=== PATIENT | female | born 1975 | race Caucasian/White ===

== ENCOUNTER 2016-12-15 13:46 | Emergency (ER) | payer OTHER ==
--- NOTE | 2016-12-15 16:44 | ED NURSING NOTES ---
Clinical Report - Nurses [place] [address] [place] [address] 12/15/2016 13:50 Patient: MONIKA PEÑA TRIAGE Triage time 1354 PM. Acuity: LEVEL 4. Chief Complaint: HEADACHE, MIGRAINE HEADACHE and FACIAL PAIN. Alert. No acute distress. SEPSIS SCREEN: Sepsis Screen. Negative (no infection suspected/documented). JAYASHREE COMA SCORE: Murdock Coma Scale: 15- eyes open spontaneously (4); best verbal response- oriented x 4 (5); best motor response- obeys commands (6). --14:06 Juana Martinez R.N. 13:52 12/15/16. BP: 142/67 (large adult cuff) taken on the right arm, via an automated monitor, while lying. HR: 76. RR: 16. O2 saturation: 99% on room air. Temp: 97.9 F (oral). Pain level now: 08/07. --14:06 Juana Martinez R.N. Weight: 157.8 kg stated. Height/Length: 64 inches Per Patient. BMI: 59.8. --13:52 Juana Martinez R.N. Medications Vasocidin. --14:10 Juana Martinez R.N. Tramadol HCL Oral 50 mg. --14:10 Juana Martinez R.N. TraZODone HCl Oral. --14:11 Juana Martinez R.N. Mirtazapine Oral. --14:11 Juana Martinez R.N. Cymbalta Oral. --14:11 Juana Martinez R.N. Hydrochlorothiazide Oral. --14:11 Juana Martinez R.N. glucosemine. --14:11 Juana Martinez R.N. Psyllium Oral. --14:12 Juana Martinez R.N. Cyanocobalamin Oral. --14:12 Juana Martinez R.N. Benadryl Allergy Oral. Benadryl Oral. --14:12 Juana Martinez R.N. Xanax Oral. --14:12 Juana Martinez R.N. Zofran Oral. --14:12 Juana Martienz R.N. Zocor Oral. --14:12 Juana Martinez R.NSamantha Meloxicam Oral. --14:13 Juana Martinez R.N. Colchicine Oral. --14:13 Juana Martinez R.NSamantha MetFORMIN HCl Oral. --14:13 Juana Martinez R.NSamantha Protonix Oral. --14:13 Juana Martinez R.N. HydrOXYzine HCl Oral. --14:13 Juana Martinez R.N. Norvasc Oral. --14:14 Juana Martinez R.N. Gabapentin Oral. --14:14 Juana Martinez R.N. Allopurinol Oral. --14:14 Juana Martinez R.N. Plavix Oral. --14:15 Juana Martinez R.NSamantha Lisinopril Oral. --14:15 Juana Martinez R.N. Mobic Oral. --14:16 Juana Martinez R.N. Requip Oral. --14:16 Juana Martinez R.N. Zonisamide Oral. --14:16 Juana Martinez R.N. Cyproheptadine HCl Oral. --14:16 Juana Martinez R.N. Solifenacin Succinate Oral. --14:17 Juana Martinez R.NSamantha Levothyroxine Sodium Oral. --14:17 Juana Martinez R.N. Allergies STEROIDS. --14:18 Juana Martinez R.N. Aspirin. Iodine. --14:18 Juana Martinez R.N. Unknown. --14:19 Juana Martinez R.N. The following entry was struck by Juana Martinez R.N., 14:19 (12/15/16) Reason - other. <<STRICKEN ENTRY-- Asp. --14:18 Juana Martinez R.N. --END STRIKE>>. Medication/allergy information source: the patient. --14:06 Juana Martinez R.N. History Arrived by private vehicle, and accompanied by family. Primary physician (Dr. Priti Castrejon in [place]). ( Pt states suffers from migraines for the past 2 years with numbness in left side from face to feet. Here from [place] visiting mom, when at a about 1/2 hr ago when a migraine initiated, usually takes benadryl to help it. Pt states when she goes to the ED they treat it with pain meds to help). This started today. This is a recurrent problem. (1/2 hour). She has had nausea and weakness. She has had constant, pain-related, localized numbness of the left face, arm, hand, leg and foot. She has had similar symptoms previously. No vomiting, fever or sinus pain. Treatment ORAL SURGERY ASSISTANT: (unknown antiaxiety meds). PAST MEDICAL HX: Diabetes mellitus. Hypertension. Headaches. Immunizations: up-to-date. The patient has had a hysterectomy. SOCIAL HX: Never smoker. No alcohol use or drug use. Recent travel by airplane in the last week- [facility] (1 week). ABUSE ASSESSMENT: No report of abuse. SELF HARM ASSESSMENT: A self harm assessment was performed. The patient answered "no" to the question "Do you have thoughts of harming or killing yourself?" and "Have you recently had thoughts about harming or killing others?". FALL RISK ASSESSMENT: Fall risk assessment completed. No fall risk identified. NUTRITIONAL RISK ASSESSMENT: The nutritional risk assessment revealed no deficiencies. FUNCTIONAL ASSESSMENT: Functional assessment: no impairments noted. LEARNING NEEDS ASSESSMENT: The learning needs assessment revealed no barriers. SKIN INTEGRITY ASSESSMENT: Skin integrity risk assessment completed. No skin integrity risk identified. --14:06 Juana Martinez R.N. PROBLEMS: UTI - Urinary Tract Infection. Spleen enlargement. Nephrolithiasis. Plantar Fasciitis. Arthritis. Diabetes Mellitus Type 2. Migraine Headache. --14:02 Juana Martinez R.N. Anxiety Reaction. --14:05 Juana Martinez R.N. ADDITIONAL SURGERIES: Appendectomy. Hysterectomy. --14:02 Martinez, Juana, R.N. Interventions ID band on patient. --14:06 Juana Martinez R.N. PHYSICAL ASSESSMENT To room via wheelchair. GENERAL / NEURO / PSYCH: Alert. Oriented X 4. Appears in no acute distress. Appears in pain. Speech within normal limits. She has had constant, pain-related, localized weakness. She has had numbness. Pupillary exam: Right pupil round and briskly reactive to light directly. Left pupil: round and briskly reactive to light directly. HEENT: Left-sided facial weakness. Photophobia present. Pupils equal, round and reactive to light. No sinus tenderness present. RESPIRATORY: Respirations not labored. Breath sounds within normal limits. GI / : The patient has had nausea. Abdomen soft and nontender. No abdominal tenderness or distention. No emesis noted. SKIN: Skin is warm and dry. --14:08 Juana Martinez R.N. ( Pt with recurrent left sided weakness when migranes initiate.). --14:20 Juana Martinez R.N. NURSING PROGRESS NOTES The initial plan of care for this patient has been created This plan of care was discussed with the patient. Reassurance given. Lights dimmed. Two patient identifiers checked. Call light placed in reach. Side rails up x 1. Bed placed in lowest position. Brakes of bed on. --14:18 Juana Martinez R.N. 15:11 12/15/2016 Lortab (Hydrocodone-APAP) PO 5/325 mg Tablets 1 tab given. Allergies verified and confirmed 5 rights. --15:11 Juana Martinez R.N. 15:22 12/15/2016 Site #1 started via IV in the left antecubital space with an 20g angiocath; one attempt. Blood drawn: rainbow set. Labeled in the presence of the patient and sent to the lab. Saline lock flushed. --15:22 Juana Martinez R.N. 15:22 12/15/2016 PHENERGAN (Promethazine HCl) IVP 25 mg given over 2 minute(s) via site #1. Allergies verified and confirmed 5 rights. IV patency established. IV site checked: no pain, redness, or swelling. IV flushed thoroughly pre- and post-medication administration. IVP given by RN. --15:22 Juana Martinez R.N. 15:12/15/2016 Benadryl (DiphenhydrAMINE HCl) IVP 25 mg given over 1 minute(s) via site #1. Allergies verified, confirmed 5 rights and sedative warning given to the patient. IV patency established. IV site checked: no pain, redness, or swelling. IV flushed thoroughly pre- and post-medication administration. IVP given by RN. --15:26 Juana Martinez R.N. 15:12/15/2016 Started bag #1 1000 mL IV Fluids IV NS (Saline); over 1 hour(s) via site #1 via dial-a-flow. Allergies verified and confirmed 5 rights. IV patency established. IV site checked: no pain, redness, or swelling. IV flushed thoroughly pre- and post-medication administration. --15:26 Juana Martinez R.N. Warming measures: blanket applied. Reassurance given. Lights dimmed. The patient is calm and resting quietly. Overall patient status- she states feels better. ( Pt states feeling in arm is "back and in my face as well" now just pain, vicodin/phenergan and benadryl given as ordered). GENERAL / NEURO / PSYCH: The patient reports headache. She reports numbness. Numbness is still present but improving. Two patient identifiers checked. Call light placed in reach. Side rails up x 1. Bed placed in lowest position. Brakes of bed on. --15:32 Juana Martinez R.N. 15:29 12/15/16. HR: 87. RR: 18. O2 saturation: 100% on room air. Pain level now: 07/08. --15:32 Juana Martinez R.N. ( Pt reports she's still nauseated after nausea medication). --15:48 [address] [place] 16:11 12/15/2016 Zofran (Ondansetron HCl) IVP 8 mg given over 4 minute(s) via site #1. Allergies verified and confirmed 5 rights. IV patency established. IV site checked: no pain, redness, or swelling. IV flushed thoroughly pre- and post-medication administration. IVP given by RN. --16:11 Juana Martinez R.N. 16:00 12/15/16. BP: 126/58. HR: 89. RR: 18. O2 saturation: 100% on room air. Temp: 97.7 F. Pain level now: 03/07. --16:19 Juana Martinez R.N. Reassurance given. Reassessment after medication administered. She is calm and has had no adverse reaction. Overall patient status is improved- she states feels better. GENERAL / NEURO / PSYCH: The patient reports headache is still present but improving and is currently mild in severity. GI / : The patient reports nausea is still present but improving. Two patient identifiers checked. Call light placed in reach. Side rails up x 1. Bed placed in lowest position. Brakes of bed on. --16:19 Juana Martinez R.N. 16:05 12/15/2016 Lortab PO Response: no adverse reaction pain is improving. Symptoms have improved the patient feels better. --16:20 Juana Martinez R.N. 16:20 12/15/2016 Benadryl IVP Response: no adverse reaction. --16:20 Juana Martinez R.N. 16:20 12/15/2016 PHENERGAN IVP Response: no adverse reaction. --16:20 Juana Martinez R.N. 16:49 12/15/2016 Zofran IVP Response: no adverse reaction symptoms have improved the patient feels better. --17:04 Juana Martinez R.N. 16:54 12/15/2016 Site #1 removed upon discharge. Catheter intact. Manual pressure applied. --17:04 Juana Martinez R.N. 16:54 12/15/2016 IV Fluids IV NS Discontinued: bag #1 infused upon discharge. Total amount infused: 1000 mL. IV patency established. IV site checked: no pain, redness, or swelling. IV flushed thoroughly. --17:04 Juana Martinez R.N. DISPOSITION / DISCHARGE Departure time: 1657 PM. Condition at departure: improved and stable. The goals identified in the patient's plan of care were met. No learning barriers present. Discharge instructions provided and reviewed with the patient and parent. Activity restrictions (rest) reviewed. Note given. Patient verbalized understanding. Written instructions provided in [place]. No medication instructions, treatment instructions or referrals given to the patient. The patient was discharged by the physician career services assistant. She was discharged home and accompanied by parent. She left the Emergency Department ambulatory and via private vehicle. Parent driving. FALL RISK ASSESSMENT: Fall risk assessment completed. No fall risk identified. --17:07 Juana Martinez R.N. 16:55 12/15/16. BP: 128/89 (regular adult cuff) taken on the left arm, via an automated monitor, while sitting. HR: 87. RR: 16 (regular and unlabored). O2 saturation: 98% on room air. Temp: 98 F (oral). Pain level now: 01/05. --17:07 Juana Martinez R.N. Locked/Released at 12/16/2016 1:47 by Juana Martinez R.N.
--- NOTE | 2016-12-15 16:44 | ED ORDER SUMMARY ---
..... Patient: MONIKA PEÑA OrderSheet [facility] VisitID: [id number] [address] [place] [address] 41y, F Registration Date/Time: 12/15/2016 ORDER SHEET Weight: 157.8 kg (stated) Allergies: STEROIDS, Aspirin, Iodine, Unknown GENERAL ORDERS: MEDICATION ORDERS: Phenergan IV 25 mg (NOW) (14:43 12/15/2016 JCoates) (15:22 EHassan R.N.) Lortab PO 5-325 mg (NOW) (14:44 12/15/2016 JCoates) (15:11 EHassan R.N.) IV FLUIDS: IV NS with Normal Saline 1 Liter: initial bolus 1000 mL (1000 mL/hr), then 1000 mL/hr for X1 (NOW) (14:41 12/15/2016 JCoates) (15:26 EHassan R.N.) Benadryl IV 25 mg (NOW) (14:42 12/15/2016 JCoates) (15:26 EHassan R.N.) IV Saline Lock (14:43 12/15/2016 JCoates) (15:22 EHassan R.N.) Zofran IV 8 mg (NOW) (16:04 12/15/2016 JCoates) (16:11 EHassan R.N.) ORDER SHEET NOTES: [Electronically signed by Renard Haley (23:35 12/15/2016)] [Electronically signed by Juana Martinez R.N. (01:47 12/16/2016)] [Electronically locked/signed by Juana Martinez R.N. (01:47 12/16/2016)]
--- NOTE | 2016-12-15 16:44 | ED ORDER SUMMARY ---
..... Patient: MONIKA PEÑA OrderSheet [facility] VisitID: [id number] [address] [place] [address] 41y, F Registration Date/Time: 12/15/2016 ORDER SHEET Weight: 157.8 kg (stated) Allergies: STEROIDS, Aspirin, Iodine, Unknown GENERAL ORDERS: MEDICATION ORDERS: Phenergan IV 25 mg (NOW) (14:43 12/15/2016 JCoates) (15:22 EHassan R.N.) Lortab PO 5-325 mg (NOW) (14:44 12/15/2016 JCoates) (15:11 EHassan R.N.) IV FLUIDS: IV NS with Normal Saline 1 Liter: initial bolus 1000 mL (1000 mL/hr), then 1000 mL/hr for X1 (NOW) (14:41 12/15/2016 JCoates) (15:26 EHassan R.N.) Benadryl IV 25 mg (NOW) (14:42 12/15/2016 JCoates) (15:26 EHassan R.N.) IV Saline Lock (14:43 12/15/2016 JCoates) (15:22 EHassan R.N.) Zofran IV 8 mg (NOW) (16:04 12/15/2016 JCoates) (16:11 EHassan R.N.) ORDER SHEET NOTES: [Electronically signed by Renard Haley (23:35 12/15/2016)] [Electronically signed by Juana Martinez R.N. (01:47 12/16/2016)] [Electronically locked/signed by Juana Martinez R.N. (01:47 12/16/2016)]
--- NOTE | 2016-12-15 16:44 | ED CLINICAL REPORT ---
Clinical Report - Physicians/Mid Levels [facility] [address] [place] [address] 12/15/2016 13:50 Patient: MONIKA PEÑA Time Seen: 14:33 Dec 15 2016. Arrived- By private vehicle. Historian- patient. HISTORY OF PRESENT ILLNESS Chief Complaint: MIGRAINE HEADACHE. Is still present but is improving. This started just prior to arrival about 1 hours ago. It was abrupt in onset and has been constant. Onset during emotional upset. It is described as similar to previous headaches, "pain", throbbing and sharp. Located in the right hemicranial region. No neck pain. Not located in the facial region. At its maximum, severity described as severe and 7 / 10. There were preceding symptoms. She has had blurred vision, photophobia, nausea, numbness, and vomiting. No weakness. Similar symptoms previously: Occasionally, as bad. Recent medical care: Not recently seen/assessed. REVIEW OF SYSTEMS No fever, sinus pressure, ear pain, sore throat or head injury. No chest pain, abdominal pain, diarrhea, pain with urination or skin rash. She has had a cough. All systems otherwise negative, except as recorded above. PAST HISTORY See nurses notes. History of chronic headaches. No history of heart disease. SOCIAL HISTORY Never smoker. No alcohol use or drug use. ADDITIONAL NOTES The nursing notes have been reviewed. PHYSICAL EXAM Appearance: No acute distress. Appears to be in pain. Does not appear to be lethargic. Eyes: Photophobia present. Pupils equal, round and reactive to light. No conjunctival findings or shallow angle. ENT: Ears normal. Nose normal. Pharynx normal. Neck: Normal inspection. Neck supple. No meningeal signs. CVS: Normal heart rate and rhythm. Heart sounds normal. Respiratory: No respiratory distress. Breath sounds normal. Abdomen: Soft and nontender. Obese. Back: Normal inspection. No CVA tenderness. Skin: Skin warm and dry. Normal skin color. No rash. Normal skin turgor. Neuro: Oriented X 3. Alert. Mood/affect normal. Speech normal. Cranial nerves normal (as tested). No cerebellar findings. No motor deficit. No sensory deficit. PROGRESS AND PROCEDURES Course of Care: 15:16 12/15/16. Patient Stable. Long-standing history of migraine headaches with consistent pattern. She lists ASA and steroids as allergies. Says Vicodin has helped in the past. I think it's reasonable to give her a single oral Vicodin but otherwise IV rehydration Benadryl and promethazine. 16:05 12/15/16. Patient says headache better but continues to have nausea. Will give IV Zofran. Patient better after Zofran. We'll discharge home. 01:47. Disposition: Condition: good. CLINICAL IMPRESSION Chronic recurrent migraine headache with aura. No status migrainosus. Not refractory to treatment. Cervical strain. INSTRUCTIONS Remain at bedrest today for one days. No dietary restrictions. Warnings: SEDATIVE MEDICATION: You were given sedative medication during your visit. Do not drive or operate dangerous machinery for 12 hours. GENERAL WARNINGS: Return or contact your physician immediately if your condition worsens or changes unexpectedly, if not improving as expected, or if other problems arise. SPECIFICALLY, return if you develop fever, vomiting or fainting. Follow-up: Follow up with your doctor in three days as needed. Understanding of the discharge instructions verbalized by patient. (Electronically signed by Renard Haley, 12/15/2016 23:35)
--- NOTE | 2016-12-16 01:47 | ED MAR SUMMARY ---
..... Medication Administration Record [facility] [address] [place] [place] [address] Patient: MONIKA PEÑA Visit ID: [id number] 41y, F Weight: 157.8 kg Height/Length: 64 in BMI: 59.8 ALLERGIES: Aspirin, Iodine, STEROIDS, Unknown Given 15:12/15/2016 Juana Martinez R.N. Medication Administered: LORTAB [PO] (HYDROCODONE-APAP), Dose: 1 tab 5/325 mg Tablets PO. Medication Ordered: Lortab PO 5-325 mg (NOW). Given 15:22 12/15/2016 Juana Martinez R.N. Medication Administered: PHENERGAN [IVP] (PROMETHAZINE HCL), Dose: 25 mg IVP over 2 minute(s), Site: #1 left AC. Medication Ordered: Phenergan IV 25 mg (NOW). Start 15:26 12/15/2016 Juana Martinez R.N., Stop 16:54 12/15/2016 Juana Martinez R.N. Medication Administered: IV NS (SALINE), Dose: IV Fluids over 1 hour(s), Dispensed: 1000 mL bag, Site: #1 left AC. Medication Ordered: IV NS with Normal Saline 1 Liter: initial bolus 1000 mL (1000 mL/hr), then 1000 mL/hr for X1 (NOW). Given 15:26 12/15/2016 Juana Martinez R.N. Medication Administered: BENADRYL [IVP] (DIPHENHYDRAMINE HCL), Dose: 25 mg IVP over 1 minute(s), Site: #1 left AC. Medication Ordered: Benadryl IV 25 mg (NOW). Given 16:11 12/15/2016 Juana Martinez R.N. Medication Administered: ZOFRAN [IVP] (ONDANSETRON HCL), Dose: 8 mg IVP over 4 minute(s), Site: #1 left AC. Medication Ordered: Zofran IV 8 mg (NOW).
--- NOTE | 2016-12-16 01:47 | ED MED RECONCILIATION SUMMARY ---
Patient: MONIKA PEÑA JO Medication Reconciliation Report [facility] VisitID: [id number] [address] [place] [address] 41y, F Registration Date/Time: 12/15/2016 Weight: 157.8 kg Height/Length: 64 in. BMI: 59.8 ALLERGIES: Aspirin, Iodine, STEROIDS, Unknown The patient's Home Medications are listed below: THE FOLLOWING MEDICATIONS NEED TO BE RECONCILED: Allopurinol Oral Benadryl Allergy Oral Benadryl Oral Colchicine Oral Cyanocobalamin Oral Cymbalta Oral Cyproheptadine HCl Oral Gabapentin Oral glucosemine Hydrochlorothiazide Oral HydrOXYzine HCl Oral Levothyroxine Sodium Oral Lisinopril Oral Meloxicam Oral MetFORMIN HCl Oral Mirtazapine Oral Mobic Oral Norvasc Oral Plavix Oral Protonix Oral Psyllium Oral Requip Oral Solifenacin Succinate Oral Tramadol HCL Oral 50 mg TraZODone HCl Oral Vasocidin Xanax Oral Zocor Oral Zofran Oral Zonisamide Oral The source(s) of the original Home Medication information: patient The following Medications were given to the patient in the Emergency Department: Lortab [PO] PO 1 tab, administered: 12/15/2016 3:11:00 PM PHENERGAN [IVP] IVP 25 mg, administered: 12/15/2016 3:22:00 PM Benadryl [IVP] IVP 25 mg, administered: 12/15/2016 3:26:00 PM IV NS IV Fluids bolus 0, administered: 12/15/2016 3:26:00 PM Zofran [IVP] IVP 8 mg, administered: 12/15/2016 4:11:00 PM The following Medications were prescribed to the patient: None.
--- NOTE | 2016-12-16 01:47 | ED MED RECONCILIATION SUMMARY ---
Patient: MONIKA PEÑA JO Medication Reconciliation Report [facility] VisitID: [id number] [address] [place] [address] 41y, F Registration Date/Time: 12/15/2016 Weight: 157.8 kg Height/Length: 64 in. BMI: 59.8 ALLERGIES: Aspirin, Iodine, STEROIDS, Unknown The patient's Home Medications are listed below: THE FOLLOWING MEDICATIONS NEED TO BE RECONCILED: Allopurinol Oral Benadryl Allergy Oral Benadryl Oral Colchicine Oral Cyanocobalamin Oral Cymbalta Oral Cyproheptadine HCl Oral Gabapentin Oral glucosemine Hydrochlorothiazide Oral HydrOXYzine HCl Oral Levothyroxine Sodium Oral Lisinopril Oral Meloxicam Oral MetFORMIN HCl Oral Mirtazapine Oral Mobic Oral Norvasc Oral Plavix Oral Protonix Oral Psyllium Oral Requip Oral Solifenacin Succinate Oral Tramadol HCL Oral 50 mg TraZODone HCl Oral Vasocidin Xanax Oral Zocor Oral Zofran Oral Zonisamide Oral The source(s) of the original Home Medication information: patient The following Medications were given to the patient in the Emergency Department: Lortab [PO] PO 1 tab, administered: 12/15/2016 3:11:00 PM PHENERGAN [IVP] IVP 25 mg, administered: 12/15/2016 3:22:00 PM Benadryl [IVP] IVP 25 mg, administered: 12/15/2016 3:26:00 PM IV NS IV Fluids bolus 0, administered: 12/15/2016 3:26:00 PM Zofran [IVP] IVP 8 mg, administered: 12/15/2016 4:11:00 PM The following Medications were prescribed to the patient: None.
--- NOTE | 2016-12-16 01:47 | ED MAR SUMMARY ---
..... Medication Administration Record [facility] [address] [place] [address] Patient: MONIKA PEÑA Visit ID: [id number] 41y, F Weight: 157.8 kg Height/Length: 64 in BMI: 59.8 ALLERGIES: Aspirin, Iodine, STEROIDS, Unknown Given 15:12/15/2016 Juana Martinez R.N. Medication Administered: LORTAB [PO] (HYDROCODONE-APAP), Dose: 1 tab 5/325 mg Tablets PO. Medication Ordered: Lortab PO 5-325 mg (NOW). Given 15:22 12/15/2016 Juana Martinez R.N. Medication Administered: PHENERGAN [IVP] (PROMETHAZINE HCL), Dose: 25 mg IVP over 2 minute(s), Site: #1 left AC. Medication Ordered: Phenergan IV 25 mg (NOW). Start 15:26 12/15/2016 Juana Martinez R.N., Stop 16:54 12/15/2016 Juana Martinez R.N. Medication Administered: IV NS (SALINE), Dose: IV Fluids over 1 hour(s), Dispensed: 1000 mL bag, Site: #1 left AC. Medication Ordered: IV NS with Normal Saline 1 Liter: initial bolus 1000 mL (1000 mL/hr), then 1000 mL/hr for X1 (NOW). Given 15:26 12/15/2016 Juana Martinez R.N. Medication Administered: BENADRYL [IVP] (DIPHENHYDRAMINE HCL), Dose: 25 mg IVP over 1 minute(s), Site: #1 left AC. Medication Ordered: Benadryl IV 25 mg (NOW). Given 16:11 12/15/2016 Juana Martinez R.N. Medication Administered: ZOFRAN [IVP] (ONDANSETRON HCL), Dose: 8 mg IVP over 4 minute(s), Site: #1 left AC. Medication Ordered: Zofran IV 8 mg (NOW).
--- NOTE | 2016-12-16 01:47 | ED DISCHARGE INSTRUCTIONS ---
Patient: MONIKA PEÑA General Instructions [facility] VisitID: [id number] [place] [address] 41y, F Registration Date/Time: 12/15/2016 Chronic recurrent migraine headache with aura. No status migrainosus. Not refractory to treatment. Cervical strain. INSTRUCTIONS Remain at bedrest today for one days. No dietary restrictions. Warnings: SEDATIVE MEDICATION: You were given sedative medication during your visit. Do not drive or operate dangerous machinery for 12 hours. GENERAL WARNINGS: Return or contact your physician immediately if your condition worsens or changes unexpectedly, if not improving as expected, or if other problems arise. SPECIFICALLY, return if you develop fever, vomiting or fainting. Follow-up: Follow up with your doctor in three days as needed. Understanding of the discharge instructions verbalized by patient. ADDITIONAL INFORMATION Migraine Headache Migraine headaches are related to changes in blood flow to the brain. This causes throbbing or constant pain on one or both sides of the head. The pain may last from a few hours to several days. There is usually nausea, vomiting, sensitivity to light and sound, and blurred vision. A migraine attack may be triggered by emotional stress, hormone changes during the menstrual cycle, oral contraceptives, alcohol use, certain foods containing tyramine, eye strain, weather changes, missing meals, or too little or too much sleep. Home Care For This Headache: 1) If you were given pain medicine for this headache, do not drive yourself home . Arrange for a ride, instead. When you get home, try to sleep. You should feel much better when you wake up. 2) Migraine headaches may improve with an ice pack on the forehead or at the base of the skull. Heat to the back of your neck may relieve any neck spasm. 3) Drink only clear liquids or eat a very light diet to avoid nausea/vomiting until symptoms improve. Preventing Future Headaches: 1) Pay attention to those factors that seem to trigger your headache. Try to avoid them when you can. If you have frequent headaches, it is useful to keep a diary of what you were doing, feeling or eating in the hours before each attack. Show this to your doctor to help find the cause of your headaches. a) If you feel that stress is a factor in your headaches, look at the sources of stress in your life. Find ways to release the build-up of those stresses by using regular exercise, relaxation methods (yoga, meditation), bio-feedback or simply taking time-out for yourself. For more information about this, consult your doctor or go to a local bookstore and review books and tapes on this subject. b) Tyramine is a substance present in the following foods : chocolate, yogurt, all cheeses except cottage cheese and cream cheese. smoked or pickled fish and meat (including marrero, caviar, bologna, pepperoni, salami), liver, avocados, bananas, figs, raisins, and red wine. Be aware that these foods may trigger a migraine in some persons. Try taking these foods out of your diet for 1-2 months to see if this reduces headache frequency. Treating Future Attacks: 1) At the first sign of a headache, take time out if possible. Find a quiet, dark, comfortable place to sit or lie down. Let yourself relax or sleep. 2) An ice pack on the forehead or area of greatest pain may help. If you are having muscle spasm and tightness of the neck, a heating pad and massage to this area may be helpful. 3) If you have been prescribed a medicine to stop a migraine headache, use this at the very first warning sign of the headache (aura or initial pain) for best results. Follow Up with your doctor if the headache is not better within the next 24 hours. If you have frequent headaches you should discuss a treatment plan with your primary care doctor. Ask if you can have medicine to take at home the next time you get a bad headache. Poorly controlled chronic headaches may require a referral to a neurologist (headache specialist). Get Prompt Medical Attention if any of the following occur: Your head pain gets worse, or does not improve within 24 hours Repeated vomiting (cant keep liquids down) Sinus or ear or throat pain (not already reported) Fever of 100.4 F (38 C) or higher, or as directed by your healthcare provider Stiff neck Extreme drowsiness, confusion or fainting Dizziness, vertigo (dizziness with spinning sensation) Weakness of an arm or leg or one side of the face Difficulty with speech or vision You have been given the following additional information: Headache, Migraine (Classical) Remain at bedrest today for one days. (Electronically signed by Renard Haley, 12/15/2016 23:35)
== END 2016-12-15 16:07 | disposition home or self-care (01) ==
LOC: ED SRH 13:46
DX: S16.1XXA Strain of muscle, fascia and tendon at neck level, initial encounter (principal); G43.109 Migraine with aura, not intractable, without status migrainosus; E11.9 Type 2 diabetes mellitus without complications; Z79.899 Other long term (current) drug therapy; Z79.84 Long term (current) use of oral hypoglycemic drugs; Z88.6 Allergy status to analgesic agent; Z91.041 Radiographic dye allergy status